=== PATIENT | female | born 1975 | race Two or more races ===

== ENCOUNTER 2022-06-20 23:13 | Emergency (ER) | payer OTHER ==
[~2022-06-20] VITALS: Ht 180.3 cm; Wt 86.2 kg
--- NOTE | 2022-06-20 23:27 | NUR ---
BIB. L LOWER BACK PAIN X 1999 HAPPENINED WHILE STANDING. A/OX4. VS STABLE. 8/10 PAIN SCALE.
[2022-06-20] MEDS ORDERED: KETOROLAC TROMETHAMINE INJ 60 MG/2 ML VIAL IM ONE (23:49)
--- NOTE | 2022-06-20 23:55 | NUR ---
Wheeled to CT via [facility] with tech
--- NOTE | 2022-06-20 23:56 | NUR ---
CAME IN FOR L LOWER BACK PAIN SHE WAS STANDING UP. PAIN IS RATE 10/10 NON RADIATING AND AGGREVATED BY MOVING. PT STATES THAT SHE TOOK NAPROXEN BUT DID NT ALLEVIATE THE PAIN.
[2022-06-21] MEDS ORDERED: CARISOPRODOL 350 MG TABLET PO ONE
[2022-06-21] MEDS ORDERED: KETOROLAC TROMETHAMINE INJ 60 MG/2 ML VIAL IM ONE
--- NOTE | 2022-06-21 00:07 | NUR ---
PT RETURNED TO ER BED [address]
--- NOTE | 2022-06-21 00:07 | NUR ---
bACK TO ROOM
[2022-06-21] MEDS ORDERED: CARISOPRODOL 350 MG TABLET ONE (00:08)
[2022-06-21] MEDS ORDERED: CARI350T PO (01:13)
[2022-06-21] MEDS ORDERED: IBUP-1957 PO (01:13)
--- NOTE | 2022-06-21 02:05 | NUR ---
Patient discharged to home in stable condition . RX written and verbal after care instructions given. Patient verbalizes understanding of instruction. patient ambulatory with a steady gait
[2022-06-21 02:07] VITALS: BP 130/80
== END 2022-06-21 02:08 | disposition home or self-care (01) ==
LOC: ER 23:28
DX: M54.50 Low back pain, unspecified (principal); Z79.899 Other long term (current) drug therapy
CPT/HCPCS: 99285; 72131; 96372; J1885